=== PATIENT | female | born 1935 | race Caucasian/White ===

== ENCOUNTER 2017-08-06 19:34 | Emergency (ER) | payer BC, OTHER ==
[2017-08-06 19:54] VITALS: BP 120/60; PULSE 64; TEMP 98; BMI 40.4
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
[2017-08-06] MEDS ORDERED: ACETAMINOPHEN 500 MG TABLET (FP) PO ONE (20:58)
[2017-08-06] MEDS ORDERED: ACETAMINOPHEN 325 MG TABLET (FP) ONE (21:04)
== END 2017-08-06 22:46 | disposition home or self-care (01) ==
LOC: JERFT 19:34
DX: M25.561 Pain in right knee (principal); M54.5 Low back pain; R51 Headache; M54.2 Cervicalgia; V43.52XA Car driver injured in collision with other type car in traffic accident, initial encounter; Y92.414 Local residential or business street as the place of occurrence of the external cause; Y93.89 Activity, other specified; Y99.8 Other external cause status
CPT/HCPCS: 70450-TC; 72100-TC-FY; 72125-TC; 73110-TC-RT-FY; 73130-TC-RT-FY; 73562-TC-RT-FY; 99281-25

== ENCOUNTER 2022-01-24 16:17 | Inpatient (IN) | payer OTHER, BC ==
[2022-01-24] MEDS ORDERED: AMPICILLIN NA/SULBACTAM NA 3 GM in SODIUM CHLORIDE 100 ML IVPB ONE (18:34)
[2022-01-24 19:42] LABS: BASO % 0.2 % (0-2.0); EOS % 0.4 % (0-4.5); HEMATOCRIT 30.5 % (32.4-45.2); LYMPH % 26.4 % (8-40); MCH 36.8 pg (25.7-33.7); MEAN CELL VOLUME 102.2 fl (80-96); MEAN PLT VOLUME 7.9 fl (7.5-11.1); MONO % 5.3 % (3.8-10.2); NEUT % 67.7 % (42.8-82.8); PLATELET COUNT 71 10^3/uL (134-434); RBC 2.98 M/mm3 (3.60-5.2); RDW 14.7 % (11.6-15.6); WHITE BLOOD COUNT 4.1 K/mm3 (4.0-10.0)
[2022-01-24 19:59] LABS: CHLORIDE 104 mmol/L (98-107); SODIUM 132 mmol/L (136-145)
[2022-01-24 20:01] LABS: ALBUMIN 2.6 g/dl (3.4-5.0); BLOOD UREA NITROGEN 23.1 mg/dL (7-18); CALCIUM 8.1 mg/dL (8.5-10.1); CO2 26 mmol/L (21-32); GLUCOSE,RANDOM 266 mg/dL (74-106)
[2022-01-24] MEDS: SODIUM CHLORIDE 1,000 ML IV SCH (20:05)
[2022-01-24 20:06] LABS: TOT PROT 7.3 g/dl (6.4-8.2)
[2022-01-24 20:07] LABS: ALK PHOS 142 U/L (45-117)
[2022-01-24 20:24] LABS: ANION GAP 2 MMOL/L (8-16); SGOT/AST 196 U/L (15-37)
[2022-01-25] MEDS ORDERED: PIPERACILLIN/TAZOB 3.375 GM 3.375 GM in DEXTROSE 5%-WATER - 50 ML IVPB SCH (03:00)
[2022-01-25] MEDS ORDERED: PIPERACILLIN/TAZOB 3.375 GM 3.375 GM/50 ML BAG IVPB ONE (04:51)
[2022-01-25] MEDS: PIPERACILLIN/TAZOB 3.375 GM 3.375 GM in DEXTROSE 5%-WATER - 50 ML IVPB SCH ×3 (05:12→17:14)
[2022-01-25] MEDS: INSULIN SLIDING SCALE (NOVOLOG) 1 VIAL SQ SCH ×4 (06:25→22:12)
[2022-01-25 07:55] VITALS: BMI 39.4
[2022-01-25] MEDS: SODIUM CHLORIDE 1,000 ML IV SCH (08:53)
[2022-01-25 09:35] LABS: BASO % 0.5 % (0-2.0); EOS % 0.5 % (0-4.5); HEMATOCRIT 32.7 % (32.4-45.2); HEMOGLOBIN 11.3 GM/dL (10.7-15.3); LYMPH % 24.2 % (8-40); MCH 34.6 pg (25.7-33.7); MCHC 34.4 g/dl (32.0-36.0); MEAN CELL VOLUME 100.4 fl (80-96); MEAN PLT VOLUME 8.2 fl (7.5-11.1); MONO % 4.2 % (3.8-10.2); NEUT % 70.6 % (42.8-82.8); PLATELET COUNT 79 10^3/uL (134-434); RBC 3.25 M/mm3 (3.60-5.2); RDW 13.9 % (11.6-15.6); WHITE BLOOD COUNT 4.1 K/mm3 (4.0-10.0)
[2022-01-25] MEDS: LOSARTAN 50MG/HCTZ 12.5MG 1 TAB PO SCH ×2 (09:49→10:25)
[2022-01-25] MEDS ORDERED: INSULIN (LEVEMIR) 100 UNITS/ML UNITS SQ SCH (10:00)
[2022-01-25] MEDS ORDERED: ENOXAPARIN NA (PORCINE) 40 MG/0.4 ML DISP.SYRIN SQ SCH (10:00)
[2022-01-25] MEDS ORDERED: VANCOMYCIN/WATER 1,250 MG/250 ML BAG IVPB SCH ×2 (10:00)
[2022-01-25 10:02] LABS: CHOLESTEROL 112 mg/dL (50-200)
[2022-01-25 10:03] LABS: TRIGLYCERIDES 138 mg/dL (0-150)
[2022-01-25 10:04] LABS: ALBUMIN 2.8 g/dl (3.4-5.0); CALCIUM 7.9 mg/dL (8.5-10.1); LDL CHOLESTEROL (ONLY SJRH) 71 mg/dL (5-100); MAGNESIUM 2.1 mg/dL (1.8-2.4)
[2022-01-25 10:05] LABS: HDL CHOLESTEROL 28 mg/dL (40-60)
[2022-01-25 10:07] LABS: CREATININE 0.9 mg/dL (0.55-1.3); PHOSPHOROUS 2.1 mg/dL (2.5-4.9)
[2022-01-25 10:09] LABS: BILIRUBIN,TOTAL 0.7 mg/dL (0.2-1); TOT PROT 6.2 g/dl (6.4-8.2)
[2022-01-25 16:46] LABS: URINE APPEARANCE CLEAR; URINE BILIRUBIN NEGATIVE (NEGATIVE); URINE COLOR YELLOW; URINE GLUCOSE (UA) 1+ (NEGATIVE); URINE KETONE NEGATIVE (NEGATIVE)
[2022-01-25 16:47] LABS: EPI CELLS 52 /uL (0-25.1); HYALINE CASTS 0 /uL (0-3.1); URINE BACTERIA 12 /uL (0-1359); URINE LEUK ESTERASE NEGATIVE (NEGATIVE); URINE NITRITE NEGATIVE (NEGATIVE); URINE PROTEIN TRACE (NEGATIVE); URINE RBC 117 /uL (0-23.9); URINE UROBILINOGEN 0.2 mg/dL (0.2-1.0); URINE WBC 18 /uL (0-25.8)
[2022-01-25] MEDS: ACETAMINOPHEN 325 MG TABLET (FP) PO PRN (18:28)
[2022-01-25] MEDS ORDERED: INSULIN (LEVEMIR) 100 UNITS/ML UNITS SQ ONE (18:52)
[2022-01-25] MEDS ORDERED: NYSTATIN 100,000 UNIT/GM TOPICAL CREAM 15 GM TUBE TP SCH (22:00)
[2022-01-25] MEDS ORDERED: INSULIN (NOVOLOG) ASPART 100 UNITS/ML 10ML VIAL ONE (22:05)
[2022-01-25] MEDS: NAPH,MB-DB/K PH,MBDB POWDER PACKET PO SCH (22:10)
[2022-01-25] MEDS: SILVER SULFADIAZINE 1% TOP CREAM 50 GM JAR TP SCH (22:11)
[2022-01-25] MEDS: INSULIN (LEVEMIR) 100 UNITS/ML UNITS SQ SCH (22:13)
[2022-01-26] MEDS: PIPERACILLIN/TAZOB 3.375 GM 3.375 GM in DEXTROSE 5%-WATER - 50 ML IVPB SCH ×2 (02:21→09:54)
[2022-01-26] MEDS: INSULIN SLIDING SCALE (NOVOLOG) 1 VIAL SQ SCH ×4 (06:05→23:36)
[2022-01-26] MEDS ORDERED: INSULIN (LEVEMIR) 100 UNITS/ML UNITS SQ ONE (06:40)
[2022-01-26 08:23] LABS: BASO % 0.3 % (0-2.0); EOS % 0.4 % (0-4.5); HEMOGLOBIN 10.1 GM/dL (10.7-15.3); LYMPH % 34.3 % (8-40); MCH 34.9 pg (25.7-33.7); MCHC 34.7 g/dl (32.0-36.0); MEAN CELL VOLUME 100.7 fl (80-96); MEAN PLT VOLUME 8.1 fl (7.5-11.1); MONO % 5.8 % (3.8-10.2); NEUT % 59.2 % (42.8-82.8); PLATELET COUNT 68 10^3/uL (134-434); RBC 2.88 M/mm3 (3.60-5.2); WHITE BLOOD COUNT 3.3 K/mm3 (4.0-10.0)
[2022-01-26 08:50] LABS: MAGNESIUM 2.1 mg/dL (1.8-2.4)
[2022-01-26 08:52] LABS: ALBUMIN 2.6 g/dl (3.4-5.0)
[2022-01-26 08:53] LABS: BLOOD UREA NITROGEN 14.3 mg/dL (7-18); CALCIUM 7.7 mg/dL (8.5-10.1)
[2022-01-26 08:54] LABS: CREATININE 0.9 mg/dL (0.55-1.3); TOT PROT 5.5 g/dl (6.4-8.2)
[2022-01-26 08:57] LABS: BILIRUBIN,TOTAL 0.6 mg/dL (0.2-1)
[2022-01-26] MEDS: NAPH,MB-DB/K PH,MBDB POWDER PACKET PO SCH ×2 (09:55→23:36)
[2022-01-26] MEDS: INSULIN (LEVEMIR) 100 UNITS/ML UNITS SQ SCH ×2 (09:56→23:38)
[2022-01-26] MEDS: LOSARTAN 50MG/HCTZ 12.5MG 1 TAB PO SCH (09:59)
[2022-01-26] MEDS ORDERED: INSULIN (NOVOLOG) ASPART 100 UNITS/ML 10ML VIAL ONE ×2 (11:21→23:26)
[2022-01-26] MEDS: SILVER SULFADIAZINE 1% TOP CREAM 50 GM JAR TP SCH ×2 (11:43→23:41)
[2022-01-26] MEDS: ACETAMINOPHEN 325 MG TABLET (FP) PO PRN ×2 (11:50→22:40)
[2022-01-26 13:15] LABS: ANISOCYTOSIS 1+; MACROCYTOSIS 0; PLATELET ESTIMATE DECREASED
[2022-01-26] MEDS: VANCOMYCIN/WATER 1250 MG 1,250 MG/250 ML BAG IVPB SCH (14:24)
[2022-01-26] MEDS ORDERED: POTASSIUM CHLORIDE TABS 20 MEQ TABLET.ER (FP) PO ONE (16:04)
[2022-01-26] MEDS: LOSARTAN POTASSIUM 25 MG TABLET PO SCH (16:52)
[2022-01-26] MEDS: METHYL SALICYLATE/MENTHOL OINT 30 GM TUBE TP SCH ×2 (16:52→23:40)
[2022-01-26] MEDS: DOXYCYCLINE HYCLATE 100 MG CAPSULE PO SCH (17:03)
[2022-01-27] MEDS: INSULIN SLIDING SCALE (NOVOLOG) 1 VIAL SQ SCH ×4 (06:26→22:25)
[2022-01-27] MEDS ORDERED: INSULIN (NOVOLOG) ASPART 100 UNITS/ML 10ML VIAL ONE ×2 (06:43→18:52)
[2022-01-27] MEDS: METHYL SALICYLATE/MENTHOL OINT 30 GM TUBE TP SCH ×2 (09:28→22:28)
[2022-01-27] MEDS: SILVER SULFADIAZINE 1% TOP CREAM 50 GM JAR TP SCH ×2 (09:28→22:27)
[2022-01-27] MEDS: INSULIN (LEVEMIR) 100 UNITS/ML UNITS SQ SCH ×2 (09:30→22:24)
[2022-01-27] MEDS: DOXYCYCLINE HYCLATE 100 MG CAPSULE PO SCH ×2 (09:30→17:08)
[2022-01-27] MEDS: LOSARTAN POTASSIUM 25 MG TABLET PO SCH (09:30)
[2022-01-27] MEDS: LOSARTAN 50MG/HCTZ 12.5MG 1 TAB PO SCH (09:31)
[2022-01-27 09:37] LABS: BASO % 0.6 % (0-2.0); EOS % 0.4 % (0-4.5); HEMATOCRIT 30.2 % (32.4-45.2); HEMOGLOBIN 10.3 GM/dL (10.7-15.3); LYMPH % 27.5 % (8-40); MCH 34.6 pg (25.7-33.7); MCHC 34.3 g/dl (32.0-36.0); MEAN PLT VOLUME 8.5 fl (7.5-11.1); MONO % 4.8 % (3.8-10.2); NEUT % 66.7 % (42.8-82.8); PLATELET COUNT 70 10^3/uL (134-434); RBC 2.99 M/mm3 (3.60-5.2); RDW 14.2 % (11.6-15.6); WHITE BLOOD COUNT 2.9 K/mm3 (4.0-10.0)
[2022-01-27 09:51] LABS: CALCIUM 7.9 mg/dL (8.5-10.1)
[2022-01-27 09:52] LABS: ALBUMIN 2.6 g/dl (3.4-5.0); BLOOD UREA NITROGEN 15.4 mg/dL (7-18); MAGNESIUM 1.8 mg/dL (1.8-2.4)
[2022-01-27 09:54] LABS: CREATININE 0.9 mg/dL (0.55-1.3); PHOSPHOROUS 3.2 mg/dL (2.5-4.9)
[2022-01-27 09:56] LABS: BILIRUBIN,TOTAL 0.5 mg/dL (0.2-1)
[2022-01-27 09:57] LABS: TOT PROT 5.7 g/dl (6.4-8.2)
[2022-01-27] MEDS: VANCOMYCIN/WATER 1250 MG 1,250 MG/250 ML BAG IVPB SCH (13:49)
[2022-01-27] MEDS: ACETAMINOPHEN 325 MG TABLET (FP) PO PRN (17:08)
[2022-01-27] MEDS: CEFAZOLIN SODIUM 2 GM in DEXTROSE 5%-WATER 100 ML IVPB SCH (17:26)
[2022-01-27] MEDS ORDERED: AMOX TR/POT CLAV 875MG/125MG TABLETS (FP) PO SCH (17:30)
[2022-01-28] MEDS: ACETAMINOPHEN 325 MG TABLET (FP) PO PRN (01:01)
[2022-01-28] MEDS: CEFAZOLIN SODIUM 2 GM in DEXTROSE 5%-WATER 100 ML IVPB SCH ×3 (01:02→18:02)
[2022-01-28] MEDS: INSULIN (LEVEMIR) 100 UNITS/ML UNITS SQ SCH ×2 (06:23→21:19)
[2022-01-28] MEDS: INSULIN SLIDING SCALE (NOVOLOG) 1 VIAL SQ SCH ×4 (06:23→21:19)
[2022-01-28] MEDS ORDERED: INSULIN (NOVOLOG) ASPART 100 UNITS/ML 10ML VIAL ONE ×2 (06:27→20:51)
[2022-01-28 09:17] LABS: BASO % 0.4 % (0-2.0); EOS % 0.1 % (0-4.5); HEMOGLOBIN 11.6 GM/dL (10.7-15.3); MCH 34.3 pg (25.7-33.7); MEAN CELL VOLUME 100.7 fl (80-96); MEAN PLT VOLUME 8.8 fl (7.5-11.1); NEUT % 54.5 % (42.8-82.8); PLATELET COUNT 84 10^3/uL (134-434); RBC 3.38 M/mm3 (3.60-5.2); RDW 14.1 % (11.6-15.6); WHITE BLOOD COUNT 4.5 K/mm3 (4.0-10.0)
[2022-01-28 09:44] LABS: BLOOD UREA NITROGEN 19.5 mg/dL (7-18)
[2022-01-28 09:48] LABS: CALCIUM 8.1 mg/dL (8.5-10.1)
[2022-01-28] MEDS: DOXYCYCLINE HYCLATE 100 MG CAPSULE PO SCH ×2 (10:05→18:00)
[2022-01-28] MEDS: LOSARTAN POTASSIUM 25 MG TABLET PO SCH (10:05)
[2022-01-28] MEDS: SILVER SULFADIAZINE 1% TOP CREAM 50 GM JAR TP SCH ×2 (10:10→22:07)
[2022-01-28] MEDS: METHYL SALICYLATE/MENTHOL OINT 30 GM TUBE TP SCH ×2 (10:11→21:21)
[2022-01-28] MEDS: LOSARTAN 50MG/HCTZ 12.5MG 1 TAB PO SCH (11:17)
[2022-01-28 15:07] LABS: BABESIA MICROTI ANTIBODY IGG <1:10 (Neg:<1:10); BABESIA MICROTI ANTIBODY IGM <1:10 (Neg:<1:10)
[2022-01-28 16:07] LABS: E.chaff HME IgG Negative (Neg:<1:64)
[2022-01-29] MEDS: CEFAZOLIN SODIUM 2 GM in DEXTROSE 5%-WATER 100 ML IVPB SCH ×3 (01:47→17:14)
[2022-01-29] MEDS: INSULIN SLIDING SCALE (NOVOLOG) 1 VIAL SQ SCH ×4 (07:19→22:05)
[2022-01-29] MEDS: INSULIN (LEVEMIR) 100 UNITS/ML UNITS SQ SCH ×2 (07:20→22:04)
[2022-01-29] MEDS: SILVER SULFADIAZINE 1% TOP CREAM 50 GM JAR TP SCH ×2 (09:49→22:05)
[2022-01-29] MEDS: METHYL SALICYLATE/MENTHOL OINT 30 GM TUBE TP SCH ×2 (09:49→22:06)
[2022-01-29] MEDS: LOSARTAN POTASSIUM 25 MG TABLET PO SCH (09:49)
[2022-01-29] MEDS: DOXYCYCLINE HYCLATE 100 MG CAPSULE PO SCH ×2 (09:49→17:14)
[2022-01-29] MEDS: LOSARTAN 50MG/HCTZ 12.5MG 1 TAB PO SCH (09:49)
[2022-01-29] MEDS ORDERED: CEFAZOLIN SODIUM 2 GM VIAL ONE (09:50)
[2022-01-29 09:55] LABS: BASO % 0.2 % (0-2.0); EOS % 0.3 % (0-4.5); HEMOGLOBIN 10.9 GM/dL (10.7-15.3); LYMPH % 29.5 % (8-40); MCH 34.3 pg (25.7-33.7); MCHC 34.1 g/dl (32.0-36.0); MEAN CELL VOLUME 100.5 fl (80-96); MEAN PLT VOLUME 8.6 fl (7.5-11.1); MONO % 5.1 % (3.8-10.2); NEUT % 64.9 % (42.8-82.8); PLATELET COUNT 76 10^3/uL (134-434); RBC 3.18 M/mm3 (3.60-5.2); RDW 14.4 % (11.6-15.6); WHITE BLOOD COUNT 3.3 K/mm3 (4.0-10.0)
[2022-01-29 10:18] LABS: ALBUMIN 2.9 g/dl (3.4-5.0); CALCIUM 8.6 mg/dL (8.5-10.1)
[2022-01-29 10:20] LABS: BLOOD UREA NITROGEN 24.2 mg/dL (7-18)
[2022-01-29 10:24] LABS: BILIRUBIN,TOTAL 0.4 mg/dL (0.2-1); TOT PROT 6.2 g/dl (6.4-8.2)
[2022-01-29] MEDS: ACETAMINOPHEN 325 MG TABLET (FP) PO PRN (17:46)
[2022-01-29] MEDS ORDERED: INSULIN (NOVOLOG) ASPART 100 UNITS/ML 10ML VIAL ONE (20:47)
[2022-01-30] MEDS: CEFAZOLIN SODIUM 2 GM in DEXTROSE 5%-WATER 100 ML IVPB SCH ×3 (01:11→17:16)
[2022-01-30] MEDS: INSULIN SLIDING SCALE (NOVOLOG) 1 VIAL SQ SCH ×4 (06:12→21:36)
[2022-01-30] MEDS: INSULIN (LEVEMIR) 100 UNITS/ML UNITS SQ SCH ×2 (06:13→21:36)
[2022-01-30] MEDS: LOSARTAN POTASSIUM 25 MG TABLET PO SCH (09:38)
[2022-01-30] MEDS: METHYL SALICYLATE/MENTHOL OINT 30 GM TUBE TP SCH ×2 (09:38→21:36)
[2022-01-30] MEDS: LOSARTAN 50MG/HCTZ 12.5MG 1 TAB PO SCH (09:38)
[2022-01-30] MEDS: SILVER SULFADIAZINE 1% TOP CREAM 50 GM JAR TP SCH ×2 (09:38→21:36)
[2022-01-30] MEDS: DOXYCYCLINE HYCLATE 100 MG CAPSULE PO SCH ×2 (09:38→17:17)
[2022-01-31] MEDS: CEFAZOLIN SODIUM 2 GM in DEXTROSE 5%-WATER 100 ML IVPB SCH ×3 (01:57→17:18)
[2022-01-31] MEDS: INSULIN (LEVEMIR) 100 UNITS/ML UNITS SQ SCH ×2 (06:34→22:45)
[2022-01-31] MEDS: INSULIN SLIDING SCALE (NOVOLOG) 1 VIAL SQ SCH ×4 (06:34→22:44)
[2022-01-31 09:27] LABS: BASO % 0.3 % (0-2.0); EOS % 0.2 % (0-4.5); HEMATOCRIT 32.2 % (32.4-45.2); LYMPH % 35.1 % (8-40); MCH 34.8 pg (25.7-33.7); MCHC 34.2 g/dl (32.0-36.0); MEAN CELL VOLUME 101.7 fl (80-96); MEAN PLT VOLUME 8.4 fl (7.5-11.1); MONO % 5.1 % (3.8-10.2); NEUT % 59.3 % (42.8-82.8); PLATELET COUNT 80 10^3/uL (134-434); RBC 3.17 M/mm3 (3.60-5.2); RDW 14.2 % (11.6-15.6); WHITE BLOOD COUNT 4.3 K/mm3 (4.0-10.0)
[2022-01-31 09:32] LABS: BLOOD UREA NITROGEN 34.5 mg/dL (7-18); CALCIUM 8.3 mg/dL (8.5-10.1)
[2022-01-31 09:37] LABS: BILIRUBIN,TOTAL 0.4 mg/dL (0.2-1); TOT PROT 6.5 g/dl (6.4-8.2)
[2022-01-31] MEDS: LOSARTAN POTASSIUM 25 MG TABLET PO SCH (09:56)
[2022-01-31] MEDS: LOSARTAN 50MG/HCTZ 12.5MG 1 TAB PO SCH (09:56)
[2022-01-31] MEDS: METHYL SALICYLATE/MENTHOL OINT 30 GM TUBE TP SCH ×2 (09:58→22:44)
[2022-01-31] MEDS: SILVER SULFADIAZINE 1% TOP CREAM 50 GM JAR TP SCH ×2 (09:58→22:43)
[2022-01-31] MEDS ORDERED: POTASSIUM CHLORIDE TABS 20 MEQ TABLET.ER (FP) PO ONE (10:35)
[2022-02-01] MEDS: CEFAZOLIN SODIUM 2 GM in DEXTROSE 5%-WATER 100 ML IVPB SCH ×2 (02:35→09:40)
[2022-02-01] MEDS: INSULIN SLIDING SCALE (NOVOLOG) 1 VIAL SQ SCH ×2 (06:54→12:08)
[2022-02-01] MEDS: INSULIN (LEVEMIR) 100 UNITS/ML UNITS SQ SCH (06:54)
[2022-02-01 09:39] LABS: CALCIUM 8.4 mg/dL (8.5-10.1)
[2022-02-01 09:40] LABS: BASO % 0.2 % (0-2.0); BLOOD UREA NITROGEN 32.9 mg/dL (7-18); EOS % 0.1 % (0-4.5); HEMATOCRIT 32.6 % (32.4-45.2); HEMOGLOBIN 11.2 GM/dL (10.7-15.3); LYMPH % 32.2 % (8-40); MCH 34.4 pg (25.7-33.7); MCHC 34.3 g/dl (32.0-36.0); MEAN CELL VOLUME 100.3 fl (80-96); MEAN PLT VOLUME 8.5 fl (7.5-11.1); MONO % 3.9 % (3.8-10.2); NEUT % 63.6 % (42.8-82.8); PLATELET COUNT 82 10^3/uL (134-434); RBC 3.25 M/mm3 (3.60-5.2); RDW 14.3 % (11.6-15.6)
[2022-02-01] MEDS: LOSARTAN 50MG/HCTZ 12.5MG 1 TAB PO SCH (09:40)
[2022-02-01] MEDS: LOSARTAN POTASSIUM 25 MG TABLET PO SCH (09:40)
[2022-02-01 09:41] LABS: CREATININE 0.9 mg/dL (0.55-1.3)
[2022-02-01] MEDS: SILVER SULFADIAZINE 1% TOP CREAM 50 GM JAR TP SCH (09:41)
[2022-02-01] MEDS: METHYL SALICYLATE/MENTHOL OINT 30 GM TUBE TP SCH (09:41)
[2022-02-01 13:26] VITALS: BP 154/69; PULSE 58; RESP 17; TEMP 98.8
== END 2022-02-01 16:03 | disposition home health service (06) | DRG 758 ==
LOC: JERFT 16:17 → JER 16:17 → JERBED 20:54 → J7W 01-25 05:43
PROVIDERS: ADMIT Internal Medicine; ATTEND Internal Medicine
DX: N76.4 Abscess of vulva (principal); D61.818 Other pancytopenia; L03.314 Cellulitis of groin; E78.5 Hyperlipidemia, unspecified; H40.9 Unspecified glaucoma; K57.90 Diverticulosis of intestine, part unspecified, without perforation or abscess without bleeding; I12.9 Hypertensive chronic kidney disease with stage 1 through stage 4 chronic kidney disease, or unspecified chronic kidney disease; E11.22 Type 2 diabetes mellitus with diabetic chronic kidney disease; N18.9 Chronic kidney disease, unspecified; D69.6 Thrombocytopenia, unspecified; E83.39 Other disorders of phosphorus metabolism; B95.61 Methicillin susceptible Staphylococcus aureus infection as the cause of diseases classified elsewhere
CPT/HCPCS: 0241U-QW; 36415; 72193-TC; 76705-TC; 80048; 80053; 80061; 81003; 82607; 82728; 82746; 82930; 82962; 83540; 83550; 83735; 84100; 84132; 85025; 86618; 86666; 86753; 86780; 87040; 87070; 87086; 87186; 87205; 87207; 93005; 93010; 99285-25